=== PATIENT | female | born 1955 | race African-American/Black ===

== ENCOUNTER → 2018-01-24 | Outpatient (CLI) | payer BC | LOC: COL.RAD 11:00 | DX: R31.9 Hematuria, unspecified (principal); R91.8 Other nonspecific abnormal finding of lung field ==

== ENCOUNTER 2018-02-04 08:39 | Outpatient (CLI) | payer BC ==
[~2018-02-04] VITALS: Ht 165.1 cm; Wt 81.0 kg
[2018-02-04] VITALS (13 sets, daily range): BP systolic 115–189; BP diastolic 63–93; PULSE 73–110; TEMP 98.2–98.6
[~2018-02-04 08:39] MED LIST: ASPIRIN E.C. 8181 MG PO; COZAAR 25MG25 MG/TAB PO; FISH OIL 1000MG1 CAP PO; GLUCOPHAGE XR500 M1 PO; LIVALO4 MG PO; MULTIPLE VITAMI1 CAP PO; SYNTHROID0.1 MG/TAB PO; THE MEDICINE S200 M2 PO; VITAMIN D 50,1.25 MG PO; ZOLOFT 50MG50 MG PO
== END 2018-02-04 12:45 | disposition home or self-care (01) ==
LOC: COL.RAD 08:39
DX: J95.830 Postprocedural hemorrhage of a respiratory system organ or structure following a respiratory system procedure (principal); R91.8 Other nonspecific abnormal finding of lung field
CPT/HCPCS: J2250; J3010

== ENCOUNTER → 2020-06-13 | Outpatient (CLI) | payer BC | LOC: MC.RAD 07:25 | DX: Z12.31 Encounter for screening mammogram for malignant neoplasm of breast (principal) ==

== ENCOUNTER 2021-03-17 05:53 | Day surgery (SDC) | payer BC ==
[~2021-03-17] VITALS: Ht 165.1 cm; Wt 82.3 kg
--- NOTE | 2021-03-17 06:05 | NUR ---
Patient ambulated to bay #1 with a steady gait and without difficulty. Height and weight obtained. Vitals obtained. Consent signed and medications reviewed. Patient stated being post-menopausal, however signed the refusal pregancy test consent. 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 NS is infusing without difficulty. Warm blanket given. Non-slip socks are on. Patient has her callbell. Verbalized understanding of consent. States no further questions.
[2021-03-17] MEDS ORDERED: ALLEGRA 180MG180 MG PO (06:23)
[2021-03-17] MEDS ORDERED: BUSPAR5 MG PO (06:24)
[2021-03-17 06:35] VITALS: BP 136/84; PULSE 92; TEMP 97.1
[2021-03-17 07:41] VITALS: BP 103/62; PULSE 70; TEMP 97.8
--- NOTE | 2021-03-17 07:41 | NUR ---
PATIENT BROUGHT BACK TO ENDO ROOM 1 VIA CART. AMBULATED TO CHAIR WITHOUT DIFFICULTY. REPORT RECIEVED FROM MARIELA GOODSON, ALL QUESTIONS ANSWERED. DENIES PAIN OR [place]. VITAL SIGNS STABLE. PATIENT STATES SHE DOESNT WANT ANYTHING TO EAT OR DRINK. WARM BLANKET PROVIDED, CALL [facility] WITHIN REACH. WILL CONTINUE TO MONITOR.
[2021-03-17 07:55] VITALS: BP 103/62; PULSE 67
--- NOTE | 2021-03-17 07:55 | NUR ---
PATIENT STATES SHE WOULD LIKE WARM WATER AT THIS TIME. VITAL SIGNS STABLE. DR. LOPEZ AT BEDSIDE TO DISCUSS RESULTS. WILL CONTINUE TO MONITOR.
[2021-03-17 08:10] VITALS: BP 116/77; PULSE 64
--- NOTE | 2021-03-17 08:10 | NUR ---
0810- PATIENT TOLERATING WATER WITHOUT DIFFICULTY. STATES SHE IS READY TO GO HOME. FRIEND CALLED TO PICK PATIENT UP. IV REMOVED, INTACT. DISCHARGE INSTRUCTIONS REVIEWED. EXTRA COPY OF REPORT GIVEN PER MD REQUEST. PATIENT TO GET DRESSED AT THIS TIME. 0825- PATIENT BROUGHT DOWN TO LOBBY VIA WHEEL CHAIR. TO BE DRIVEN HOME BY FRIEND. ALL BELONGINGS IN HAND.
== END 2021-03-17 08:25 | disposition home or self-care (01) ==
LOC: SDCO 05:53
DX: Z12.11 Encounter for screening for malignant neoplasm of colon (principal); D12.2 Benign neoplasm of ascending colon; I10 Essential (primary) hypertension; E78.5 Hyperlipidemia, unspecified; M19.90 Unspecified osteoarthritis, unspecified site; E07.9 Disorder of thyroid, unspecified; F32.9 Major depressive disorder, single episode, unspecified; Z86.010 Personal history of colon polyps; Z20.822 Contact with and (suspected) exposure to COVID-19; Z79.82 Long term (current) use of aspirin; Z79.899 Other long term (current) drug therapy; Z79.890 Hormone replacement therapy; Z85.118 Personal history of other malignant neoplasm of bronchus and lung; Z90.49 Acquired absence of other specified parts of digestive tract; Z90.89 Acquired absence of other organs; Z80.3 Family history of malignant neoplasm of breast
CPT/HCPCS: J2704; J7030

== ENCOUNTER → 2021-06-13 | Outpatient (CLI) | payer BC ==
[~2021-06-13] MED LIST changes: +ALLEGRA 180MG180 MG PO; +BUSPAR5 MG PO
== END ==
LOC: MC.RAD 08:54
DX: Z12.31 Encounter for screening mammogram for malignant neoplasm of breast (principal)